=== PATIENT | male | born 1975 | race Caucasian/White ===

== ENCOUNTER 2020-10-16 16:20 | Inpatient (IN) | payer OTHER ==
[~2020-10-16] VITALS: Ht 170.2 cm; Wt 130.0 kg
--- NOTE | ~2020-10-16 | CON ---
[address] [address] CONSULTATION Name: BRENDA COLON Room: [address] IN M.R.#: [id number] Admission: 10/16/20 Attend Phys: Elian Hair Discharge: Date of : 75 Report #: [id number] THIS REPORT FOR: cc: VAZQUEZ - No family physician/PCP FAM - No family physician/PCP Janie Barth MD ~ DATE OF CONSULTATION: 10/20/2020 NEPHROLOGY CONSULTATION CONSULTING PHYSICIAN: Dr. Villatoro. REASON FOR NEPHROLOGY CONSULTATION: Acute kidney injury. REASON FOR ADMISSION: COVID pneumonia. HISTORY OF PRESENT ILLNESS: This is a 45-year-old male with morbid obesity, no previous past medical history. He does not follow with any physicians, possibly COPD and obstructive sleep apnea, came in with dehydration, fevers, chills and night sweats. The patient was exposed to COVID-19 and eventually tested positive, although rapid test was negative. The patient has evidence of bilateral pneumonia and is being treated as COVID pneumonia. His creatinine was 2.0 on admission and it has gone up to 2.5, urine output has been slowing down. He has also been needing Levophed because he has been hypotensive. ICU team was having trouble oxygenating him, but this morning after starting him on a Dilaudid drip, his oxygenation is better. He has better synchrony with the ventilator. He was intubated and sedated when I examined him. I am not sure if he has any renal problems from the past. ALLERGIES: SULFAMETHOXAZOLE AND TRIMETHOPRIM. PAST MEDICAL AND SURGICAL HISTORY: None noted. HOME MEDICATIONS: None. FAMILY HISTORY: Cannot obtain from the patient. SOCIAL HISTORY: Smokes every day, about 5 cigarettes, does not use recreational drugs. Does not use alcohol. PHYSICAL EXAMINATION: VITAL SIGNS: Blood pressure 95/49, pulse was 90, respiratory rate was 17, pulse ox was 100% on 100% FiO2, temperature 39.4. GENERAL: The patient is intubated and sedated. HEAD AND EYES: Atraumatic and normocephalic. [place] [address] CONSULTATION Name: BRENDA COLON Anna Room: [address] IN [facility]#: [id number] Admission: 10/16/20 Attend Phys: Elian Hair Discharge: Date of : 75 Report #: [id number] EARS, NOSE AND THROAT: Normal ears and nose. ET tube in place. NECK: No JVD. CHEST: Bilaterally diminished breath sounds. No crackles. CARDIOVASCULAR: S1, S2 normal. No murmur. ABDOMEN: Soft, nondistended. LOWER EXTREMITIES: No lower extremity edema. NEUROLOGIC: He is sedated. PSYCHIATRIC: Unable to assess. LABORATORY DATA: WBC 12.2, hemoglobin 13.2, sodium 143, potassium is 5.2, BUN is 45, creatinine 2.5. Other labs were reviewed. IMAGING: Chest x-ray, renal ultrasound and other imaging studies were reviewed. ASSESSMENT: 1. Acute kidney injury, nonoliguric in the setting of COVID pneumonia, hypotension, septic shock. In all likelihood, this is ischemic acute tubular necrosis. UA shows 1+ protein and greater than 50 RBCs per high power field with hyaline casts. Renal ultrasound was unremarkable. 2. Acute hypoxic respiratory failure, COVID pneumonia, defer treatment to primary team. 3. Pain control, primary team is treating with Dilaudid and that is helping. 4. Obstructive sleep apnea. 5. Morbid obesity. 6. Hypertension. Currently in septic shock, hypotensive, on Levophed drip. PLAN: CPK level was only 660. His urine output is slowing down and his creatinine is rising and there is no acute need for dialysis. I would avoid using diuretic therapy unless it is absolutely indicated. No need for diuretic therapy right now. We will continue to follow labs and try to keep MAP of 65-70 and avoid nephrotoxic agents on him. I have ordered some workup for hematuria as well. Thank you for this consultation. The patient is critically ill. I discussed with the patient's nurse as well as Dr. Villatoro and I spent 35 minutes in critical care. Time was spent in chart review, placing orders and care coordination. We will follow with you. By: [id number] Barth MD /nt
[2020-10-16 16:32] VITALS: BP 122/73
[2020-10-16 17:31] LABS: HEMATOCRIT 40.3 % (42.0-52.0); HEMOGLOBIN 14.5 gm/dL (14.0-18.0); MCH 29.2 pg (26.0-34.0); MCV 81.2 fL (80.0-100.0); MPV 7.5 fl. (7.2-11.1); NUCLEATED RBCS 0 /100WBC; PLATELET COUNT* 186 thou/uL (150-400); RBC 4.96 mil/uL (4.50-6.00); RDW-CV 13.8 % (10.5-14.5); WBC 8.7 thou/uL (4.0-11.0)
[2020-10-16 17:37] LABS: CALCIUM 7.9 mg/dL (8.5-10.1); POTASSIUM 3.9 mmol/L (3.5-5.1)
[2020-10-16 18:00] LABS: ABSOLUTE LYMPHOCYTES 0.3 thou/uL (0.8-5.3); ABSOLUTE MONOCYTES 0.1 thou/uL (0.0-1.2); ABSOLUTE NEUTROPHILS 8.4 thou/uL (1.6-8.1)
[2020-10-16 18:01] LABS: PLATELET ESTIMATE ADEQUATE
[2020-10-16 23:45] VITALS: BP 109/53
[2020-10-17 00:22] VITALS: BP 109/53
[2020-10-17 01:24] LABS: URINE BILIRUBIN NEGATIVE (Negative); URINE BLOOD 2+ (Negative); URINE GLUCOSE-RANDOM NEGATIVE (Negative); URINE KETONES NEGATIVE (Negative); URINE LEUKOCYTES NEGATIVE (Negative); URINE NITRITE NEGATIVE (Negative); URINE PROTEIN 1+ (Negative); URINE UROBILINOGEN 0.2 E.U./dl (0.2-1.0)
[2020-10-17 01:28] LABS: URINE CLARITY SL HAZY; URINE COLOR AMBER
[2020-10-17 02:05] LABS: AMORPHOUS URATES Few /LPF (None Seen); CELLULAR CASTS 0-3 Few /LPF (None Seen); COARSE GRANULAR CASTS 0-3 Few /LPF (None Seen); FINE GRANULAR CASTS 0-3 Few /LPF (None Seen); HYALINE CASTS 0-3 Few /LPF (None Seen); MUCUS 4-6 Moderate strn/LPF (None Seen); SQUAMOUS 0-3 Few /LPF (0-3); URINE RBC 3-10 Few /HPF (0-2); URINE WBC 0-5 Rare /HPF (0-5)
[2020-10-17 04:15] LABS: HEMATOCRIT 41.4 % (42.0-52.0); HEMOGLOBIN 14.4 gm/dL (14.0-18.0); MCHC 34.8 g/dL (28.0-37.0); MCV 83.3 fL (80.0-100.0); MPV 7.5 fl. (7.2-11.1); RBC 4.97 mil/uL (4.50-6.00); RDW-CV 13.8 % (10.5-14.5); WBC 11.1 thou/uL (4.0-11.0)
[2020-10-17 04:26] VITALS: BP 91/60
[2020-10-17 04:34] LABS: CALCIUM 7.6 mg/dL (8.5-10.1); CREATININE 1.6 mg/dL (0.6-1.3); MAGNESIUM 2.7 mg/dL (1.8-2.4); POTASSIUM 4.1 mmol/L (3.5-5.1)
[2020-10-17 12:58] VITALS: BP 140/88
[2020-10-17 16:15] VITALS: BP 151/87
[2020-10-17 20:30] VITALS: BP 149/83
[2020-10-17 22:32] LABS: BE -4.7 mmol/L (-2 to +3); PCO2 29.3 mmHg (35.0-45.0); PO2 60.8 mmHg (75.0-100.0); pH 7.416 (7.340-7.450)
[2020-10-17 23:08] LABS: ABSOLUTE LYMPHOCYTES 0.3 thou/uL (0.8-5.3); ABSOLUTE MONOCYTES 0.3 thou/uL (0.0-1.2); ABSOLUTE NEUTROPHILS 7.9 thou/uL (1.6-8.1); BASOPHILS 0.1 %; HEMATOCRIT 39.2 % (42.0-52.0); HEMOGLOBIN 13.6 gm/dL (14.0-18.0); LYMPHOCYTES 3.9 %; MCH 28.9 pg (26.0-34.0); MCHC 34.7 g/dL (28.0-37.0); MCV 83.2 fL (80.0-100.0); MONOCYTES 3.8 %; MPV 7.4 fl. (7.2-11.1); NUCLEATED RBCS 0 /100WBC; PLATELET COUNT* 254 thou/uL (150-400); POLYS 92.2 %; RBC 4.71 mil/uL (4.50-6.00); RDW-CV 14.2 % (10.5-14.5); WBC 8.6 thou/uL (4.0-11.0)
[2020-10-17 23:12] LABS: CALCIUM 7.5 mg/dL (8.5-10.1); CREATININE 1.4 mg/dL (0.6-1.3); POTASSIUM 4.4 mmol/L (3.5-5.1)
[2020-10-17 23:25] LABS: MAGNESIUM 2.2 mg/dL (1.8-2.4)
[2020-10-17 23:42] VITALS: BP 104/50
[2020-10-18] VITALS (82 sets, daily range): BP systolic 70–137; BP diastolic 35–83
[2020-10-18 01:02] LABS: BE -4.6 mmol/L (-2 to +3); pH 7.334 (7.340-7.450)
[2020-10-18 12:44] LABS: BE -1.8 mmol/L (-2 to +3); PCO2 36.1 mmHg (35.0-45.0); PO2 75.4 mmHg (75.0-100.0); pH 7.408 (7.340-7.450)
--- NOTE | 2020-10-18 14:10 | EKG ---
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
[2020-10-18 17:41] LABS: BE -2.4 mmol/L (-2 to +3); PO2 84.7 mmHg (75.0-100.0); pH 7.392 (7.340-7.450)
[2020-10-19] VITALS (59 sets, daily range): BP systolic 95–118; BP diastolic 50–76
[2020-10-19 12:12] LABS: ABSOLUTE LYMPHOCYTES 0.8 thou/uL (0.8-5.3); ABSOLUTE MONOCYTES 0.2 thou/uL (0.0-1.2); ABSOLUTE NEUTROPHILS 7.6 thou/uL (1.6-8.1); BASOPHILS 0.4 %; EOSINOPHILS 0.2 %; HEMATOCRIT 38.1 % (42.0-52.0); HEMOGLOBIN 13.1 gm/dL (14.0-18.0); LYMPHOCYTES 9.6 %; MCH 28.6 pg (26.0-34.0); MCHC 34.3 g/dL (28.0-37.0); MCV 83.6 fL (80.0-100.0); MONOCYTES 2.8 %; MPV 7.2 fl. (7.2-11.1); NUCLEATED RBCS 0 /100WBC; PLATELET COUNT* 256 thou/uL (150-400); RBC 4.56 mil/uL (4.50-6.00); WBC 8.7 thou/uL (4.0-11.0)
[2020-10-19 12:16] LABS: BE -3.3 mmol/L (-2 to +3); PCO2 36.5 mmHg (35.0-45.0); PO2 64.5 mmHg (75.0-100.0)
[2020-10-19 12:24] LABS: ALBUMIN 2.1 g/dL (3.4-5.0); CALCIUM 7.3 mg/dL (8.5-10.1); CREATININE 2.3 mg/dL (0.6-1.3); MAGNESIUM 2.7 mg/dL (1.8-2.4); POTASSIUM 4.5 mmol/L (3.5-5.1); TOTAL BILIRUBIN 0.7 mg/dL (<0.1-1.0); TOTAL PROTEIN 6.4 g/dL (6.4-8.2)
[2020-10-19 18:08] LABS: URINE BILIRUBIN NEGATIVE (Negative); URINE BLOOD 3+ (Negative); URINE CLARITY CLEAR; URINE COLOR YELLOW; URINE GLUCOSE-RANDOM NEGATIVE (Negative); URINE KETONES NEGATIVE (Negative); URINE LEUKOCYTES-REFLEX NEGATIVE (Negative); URINE NITRITE-REFLEX NEGATIVE (Negative); URINE PROTEIN 1+ (Negative); URINE UROBILINOGEN 0.2 E.U./dl (0.2-1.0)
[2020-10-19 18:21] LABS: CRYSTALS None Seen /LPF (None Seen); HYALINE CASTS >10 Many /LPF (None Seen); MUCUS None Seen strn/LPF (None Seen); SQUAMOUS 0-3 Few /LPF (0-3)
[2020-10-19 18:22] LABS: BACTERIA-REFLEX 1-9 Few /HPF (None Seen)
[2020-10-19 18:23] LABS: URINE RBC >20 Many /HPF (0-2); URINE WBC-REFLEX 0-5 Rare /HPF (0-5)
[2020-10-20] VITALS (95 sets, daily range): BP systolic 90–119; BP diastolic 43–74
[2020-10-20 04:56] LABS: HEMATOCRIT 38.4 % (42.0-52.0); HEMOGLOBIN 13.2 gm/dL (14.0-18.0); MCH 28.8 pg (26.0-34.0); MCHC 34.3 g/dL (28.0-37.0); MCV 84.1 fL (80.0-100.0); MPV 7.5 fl. (7.2-11.1); RBC 4.57 mil/uL (4.50-6.00); RDW-CV 14.4 % (10.5-14.5); WBC 12.2 thou/uL (4.0-11.0)
[2020-10-20 05:21] LABS: CALCIUM 7.5 mg/dL (8.5-10.1); CREATININE 2.5 mg/dL (0.6-1.3); POTASSIUM 5.2 mmol/L (3.5-5.1); TOTAL PROTEIN 6.6 g/dL (6.4-8.2)
[2020-10-20 05:33] LABS: BE -5.9 mmol/L (-2 to +3); PCO2 40.9 mmHg (35.0-45.0); pH 7.307 (7.340-7.450)
[2020-10-21] VITALS (81 sets, daily range): BP systolic 83–143; BP diastolic 43–71
[2020-10-21 05:19] LABS: HEMOGLOBIN 12.6 gm/dL (14.0-18.0); MCH 29.3 pg (26.0-34.0); MCHC 34.1 g/dL (28.0-37.0); MCV 85.9 fL (80.0-100.0); MPV 7.7 fl. (7.2-11.1); RBC 4.31 mil/uL (4.50-6.00); RDW-CV 14.2 % (10.5-14.5); WBC 14.5 thou/uL (4.0-11.0)
[2020-10-21 05:27] LABS: CALCIUM 7.2 mg/dL (8.5-10.1)
[2020-10-21 06:06] LABS: CREATININE 5.5 mg/dL (0.6-1.3)
[2020-10-21 06:07] LABS: POTASSIUM 7.2 mmol/L (3.5-5.1)
[2020-10-21 09:20] LABS: PO2 61.2 mmHg (75.0-100.0)
[2020-10-21 09:38] LABS: PCO2 65.6 mmHg (35.0-45.0); pH 7.062 (7.340-7.450)
[2020-10-21 12:02] LABS: APTT 30.6 Seconds (25.0-31.3); INR 1.1; PROTIME 11.8 Seconds (9.20-11.50)
[2020-10-21 12:26] LABS: PCO2 66.3 mmHg (35.0-45.0); PO2 42.3 mmHg (75.0-100.0); pH 7.216 (7.340-7.450)
[2020-10-21 15:42] LABS: CALCIUM 6.8 mg/dL (8.5-10.1); CREATININE 5.6 mg/dL (0.6-1.3); POTASSIUM 4.5 mmol/L (3.5-5.1)
[2020-10-21 16:07] LABS: PCO2 60.8 mmHg (35.0-45.0); PO2 35.7 mmHg (75.0-100.0)
--- NOTE | 2020-10-21 17:09 | 2DMMODE ---
[place] [address] 2 D/M-MODE ECHOCARDIOGRAM Name: BRENDA COLON Room: [address] ADM IN [facility]#: [id number] Admission: 10/16/20 Attend Phys: Naila Villatoro Discharge: Date of : 75 Date of Service: 10/21/20 1708 Report #: [id number] THIS REPORT FOR: cc: FAM - No family physician/PCP FAM - No family physician/PCP Srinivasa Hou MD [facility] ~ ADDENDUM APPROVED REPORT Study performed: 10/21/2020 15:32:19 EXAM: Comprehensive 2D, Doppler, and color-flow Echocardiogram Patient Location: In-Patient Room #: [facility] Status: routine BSA: 2.35 HR: 91 bpm BP: 100/53 mmHg Rhythm: NSR Other Information Study Quality: Good Indications Dyspnea 2D Dimensions IVSd: 13.76 (7-11mm) LVOT Diam: 26.31 (18-24mm) LVDd: 38.43 mm PWd: 12.59 (7-11mm) Ascending Ao: 47.91 (22-36mm) LVDs: 23.67 (25-40mm) Aortic Root: 42.97 mm Aortic Valve AoV Peak Ananth.: 1.85 m/s AO Peak Gr.: 13.71 mmHg LVOT Max P.00 mmHg AO Mean Gr.: 8.41 mmHg LVOT Mean P.61 mmHg LVOT Max V: 0.87 m/s AO V2 VTI: 27.73 cm LVOT Mean V: 0.59 m/s JOS (VTI): 3.28 cm2 LVOT V1 VTI: 16.75 cm Mitral Valve E/A Ratio: 0.87 MV Decel. Time: 254.85 ms MV E Max Ananth.: 0.58 m/[place] [address] 2 D/M-MODE ECHOCARDIOGRAM Name: BRENDA COLON Room: [address] IN [facility].#: [id number] Admission: 10/16/20 Attend Phys: Naila Villatoro Discharge: Date of : 75 Date of Service: 10/21/20 1708 Report #: [id number] MV PHT: 73.91 ms MVA (PHT): 2.98 cm2 Pulmonary Valve PV Peak Ananth.: 1.08 m/s PV Peak Gr.: 4.71 mmHg Tricuspid Valve RAP Estimate: 5.00 mmHg TR Peak Gr.: 33.56 mmHg RVSP: 38.00 mmHg PA Pressure: 38.00 mmHg Left Ventricle The left ventricle is normal size. There is normal LV segmental wall motion. Mild concentric left ventricular hypertrophy. Left ventricular systolic function is normal. LVEF is 65-70%. Grade I - abnormal relaxation pattern. Right Ventricle The right ventricle is normal size. The right ventricular systolic function is normal. Atria The left atrium size is normal. The right atrium size is normal. Aortic Valve Mild aortic valve sclerosis. Mild aortic regurgitation. There is no aortic valvular stenosis. Mitral Valve The mitral valve is normal in structure. There is no mitral valve regurgitation noted. No evidence of mitral valve stenosis. Tricuspid Valve The tricuspid valve is normal in structure. Mild tricuspid regurgitation. The RVSP is 35-40 mmHg. Pulmonic Valve The pulmonary valve is normal in structure. Trace pulmonic regurgitation. Great Vessels The aortic root is normal in size. The ascending aorta is moderately dilated. IVC is normal in size and collapses >50% [place] [address] 2 D/M-MODE ECHOCARDIOGRAM Name: BRENDA COLON Room: [address]#: [id number] Admission: 10/16/20 Attend Phys: Naila Villatoro Discharge: Date of : 75 Date of Service: 10/21/20 1708 Report #: [id number] Pericardium There is no pericardial effusion. <Conclusion> The left ventricle is normal size. Mild concentric left ventricular hypertrophy. Left ventricular systolic function is normal. LVEF is 65-70%. Grade I - abnormal relaxation pattern. Mild aortic valve sclerosis. Mild aortic regurgitation. Trace tricuspid regurgitation. The RVSP is 35-40 mmHg. Trace pulmonic regurgitation. The aortic root is normal in size. The ascending aorta is moderately dilated. (4.79 cm) <ELECTRONICALLY SIGNED> By: Srinivasa Hou MD, [facility] 10/21/201707 07 07 Srinivasa Hou MD, FACC /INF
[2020-10-21 21:05] LABS: COMPLEMENT-C4 8 mg/dL (12-38)
[2020-10-22 02:06] LABS: HIV-1/HIV-2 ANTIBODY Non Reactive (Non Reactive)
[2020-10-23 02:06] LABS: HEPATITIS B SURFACE AG Negative (Negative)
== END 2020-10-21 21:30 | disposition critical access hospital (66) | DRG 871 ==
LOC: M.ERS 16:20 → M.ICU 18:53 → M.TBA-ER 18:53 → M.ORTHSURG 23:54 → M.ICU 10-17 23:25
PROVIDERS: Emergency Medicine; Internal Medicine; Pediatrics; ADMIT Internal Medicine; ATTEND Internal Medicine
PROC: 5A0935A Assistance with Respiratory Ventilation, Less than 24 Consecutive Hours, High Flow/Velocity Cannula (ICD-10-PCS; principal; 2020-10-16)
PROC: 5A1935Z Respiratory Ventilation, Less than 24 Consecutive Hours (ICD-10-PCS; 2020-10-17)
PROC: XW033E5 Introduction of Remdesivir Anti-infective into Peripheral Vein, Percutaneous Approach, New Technology Group 5 (ICD-10-PCS; 2020-10-17)
PROC: 5A09357 Assistance with Respiratory Ventilation, Less than 24 Consecutive Hours, Continuous Positive Airway Pressure (ICD-10-PCS; 2020-10-17)
PROC: 0BH17EZ Insertion of Endotracheal Airway into Trachea, Via Natural or Artificial Opening (ICD-10-PCS; 2020-10-17)
PROC: 02HV33Z Insertion of Infusion Device into Superior Vena Cava, Percutaneous Approach (ICD-10-PCS; 2020-10-17)
PROC: 5A1945Z Respiratory Ventilation, 24-96 Consecutive Hours (ICD-10-PCS; 2020-10-18)
PROC: 0BH17EZ Insertion of Endotracheal Airway into Trachea, Via Natural or Artificial Opening (ICD-10-PCS; 2020-10-18)
PROC: B548ZZA Ultrasonography of Superior Vena Cava, Guidance (ICD-10-PCS; 2020-10-18)
PROC: 5A09357 Assistance with Respiratory Ventilation, Less than 24 Consecutive Hours, Continuous Positive Airway Pressure (ICD-10-PCS; 2020-10-18)
PROC: 4A133B1 Monitoring of Arterial Pressure, Peripheral, Percutaneous Approach (ICD-10-PCS; 2020-10-20)
PROC: 03HY32Z Insertion of Monitoring Device into Upper Artery, Percutaneous Approach (ICD-10-PCS; 2020-10-20)
PROC: 4A133J1 Monitoring of Arterial Pulse, Peripheral, Percutaneous Approach (ICD-10-PCS; 2020-10-20)
DX: A41.9 Sepsis, unspecified organism (principal); U07.1 COVID-19; J12.82 Pneumonia due to coronavirus disease 2019; R65.21 Severe sepsis with septic shock; N17.0 Acute kidney failure with tubular necrosis; J96.01 Acute respiratory failure with hypoxia; J44.0 Chronic obstructive pulmonary disease with (acute) lower respiratory infection; E87.2 Acidosis; Z20.822 Contact with and (suspected) exposure to COVID-19; E86.0 Dehydration; E66.01 Morbid (severe) obesity due to excess calories; G47.33 Obstructive sleep apnea (adult) (pediatric); F17.210 Nicotine dependence, cigarettes, uncomplicated; I10 Essential (primary) hypertension; E87.5 Hyperkalemia; Z68.41 Body mass index [BMI] 40.0-44.9, adult; Z88.2 Allergy status to sulfonamides; Z88.1 Allergy status to other antibiotic agents